=== PATIENT | male | born 1985 | race African-American/Black ===

== ENCOUNTER 2024-06-19 20:27 | Emergency (ER) | payer OTHER ==
[~2024-06-19] VITALS: Ht 182.9 cm; Wt 142.0 kg
[2024-06-19 20:49] VITALS: PULSE 75; RESP 18; TEMP 98
[2024-06-19] MEDS: KETOROLAC TROMETHAMINE 30 MG/ML VIAL IV STA (21:15)
[2024-06-19] MEDS: PREDNISONE 20 MG TAB PO ONE (21:43)
[2024-06-19] MEDS ORDERED: PREDNISONE20 MG PO (22:22)
[2024-06-19 22:30] VITALS: BP 162/87; PULSE 75; RESP 18; TEMP 98; O2SAT 97
== END 2024-06-19 22:30 | disposition home or self-care (01) ==
LOC: FSED 20:38
DX: M25.532 Pain in left wrist (principal); M10.9 Gout, unspecified; G56.02 Carpal tunnel syndrome, left upper limb; M19.032 Primary osteoarthritis, left wrist
CPT/HCPCS: 73110; 99283; J7512

== ENCOUNTER 2024-07-12 18:48 | Emergency (ER) | payer OTHER ==
[~2024-07-12] VITALS: Ht 182.9 cm; Wt 141.5 kg
[~2024-07-12 18:48] MED LIST: PREDNISONE20 MG PO
[2024-07-12 18:52] VITALS: PULSE 79; RESP 18; TEMP 98.6
[2024-07-12] MEDS: ASPIRIN 81 MG CHEW TAB PO ONE (19:42)
[2024-07-12] MEDS: FAMOTIDINE 20 MG/2 ML VIAL IV ONE (19:58)
[2024-07-12 21:01] VITALS: BP 143/79; PULSE 72; RESP 18; TEMP 98.3; O2SAT 99
== END 2024-07-12 21:04 | disposition home or self-care (01) ==
LOC: MERGE 18:56 → FSED 18:56
DX: R07.89 Other chest pain (principal); E11.65 Type 2 diabetes mellitus with hyperglycemia; I10 Essential (primary) hypertension; E66.01 Morbid (severe) obesity due to excess calories; R94.31 Abnormal electrocardiogram [ECG] [EKG]
CPT/HCPCS: 71046; 80053; 83880; 84484; 85025; 85379; 93005; 94760; 99284